=== PATIENT | female | born 1995 | race Two or more races ===

== ENCOUNTER 2017-09-09 03:41 | Observation (INO) | payer SELFPAY ==
[2017-09-09 04:42] LABS: BARBITURATES NEG (NEG); BENZODIAZEPINES NEG (NEG); CANNABINOIDS NEG (NEG); COCAINE NEG (NEG); METHADONE NEG (NEG); OPIATES NEG (NEG); PHENCYCLIDINE NEG (NEG)
[2017-09-09 04:43] LABS: BILIRUBIN,URINE NEGATIVE (NEG); GLUCOSE,URINE NEGATIVE (NEG); NITRITE,URINE NEGATIVE (NEG); PH,URINE 6.5; PROTEIN,URINE NEGATIVE (NEG-TRACE)
[2017-09-09 05:00] LABS: BACTERIA,URINE MANY /HPF (0-FEW); RBC,URINE OCC /HPF (0-2); SQUAMOUS EPITHELIAL CELL,UR MOD /LPF; WBC,URINE OCC /HPF (0-4)
[2017-09-09 05:13] LABS: ETHANOL, URINE NEG (NEG)
[2017-09-09 05:27] LABS: ADD MAN DIFF? NO
[2017-09-09 06:03] LABS: BASO % 0 % (0-3); EOS % 1 % (0-3); HEMATOCRIT 34.7 % (36.0-47.0); HEMOGLOBIN 11.6 g/dL (12.0-15.5); LYMPH # 1.3 x10^3/uL (1.0-4.8); LYMPH % 16 % (24-48); MEAN CORPUSCULAR HEMOGLOBIN 29 pg (25-35); MEAN CORPUSCULAR HGB CONC 33 g/dL (31-37); MEAN CORPUSCULAR VOLUME 88 fL (79-100); MONO % 6 % (0-9); NEUT % 77 % (31-73); PLATELET COUNT 300 x10^3/uL (140-400); RED BLOOD COUNT 3.97 x10^6/uL (3.50-5.40); WHITE BLOOD COUNT 8.6 x10^3/uL (4.0-11.0)
[2017-09-10 06:09] LABS: HEP B SURFACE ABDY Non Reactive (.)
[2017-09-10 16:13] LABS: RPR Non Reactive (Non Reactive)
[2017-09-12 13:51] LABS: STREP B BY PCR SEE SEPARATE REPORT
[2017-09-12 14:20] LABS: HIV ANTIBODY Non Reactive (Non Reactive)
== END 2017-09-09 06:02 | disposition home or self-care (01) ==
LOC: 3 SO LND 03:41
DX: O26.893 Other specified pregnancy related conditions, third trimester (principal); R10.9 Unspecified abdominal pain; Z3A.37 37 weeks gestation of pregnancy
CPT/HCPCS: 36415; 76815; 80307; 81001; 85025; 86593; 86703; 86706; 86762; 86850; 86900; 86901; 87086; 87653; G0378; G0379